=== PATIENT | female | born 1960 | race Caucasian/White ===

== ENCOUNTER 2019-01-09 18:05 | Emergency (ER) | payer BC ==
[~2019-01-09] VITALS: Ht 160 cm; Wt 62.0 kg
[2019-01-09] MEDS ORDERED: metoprolol tartrate 50mg tablet PO ONE (19:05)
[2019-01-09] MEDS ORDERED: IRBE150T51 PO (19:06)
[2019-01-09 19:30] VITALS: BP 180/98
== END 2019-01-09 19:32 | disposition home or self-care (01) ==
LOC: ER 18:06
DX: I10 Essential (primary) hypertension (principal); Z79.899 Other long term (current) drug therapy
CPT/HCPCS: 93005; 99283